=== PATIENT | female | born 1935 | race Caucasian/White ===

== ENCOUNTER 2019-04-12 19:03 | Emergency (ER) | payer MEDICARE, OTHER ==
[~2019-04-12] VITALS: Ht 162.6 cm; Wt 62.6 kg
[2019-04-12] MEDS ORDERED: ENBRACE HR SOF1 EACH PO (19:09)
[2019-04-12] MEDS ORDERED: LIPITOR 20 MG T20 M1 PO (19:09)
[2019-04-12] MEDS ORDERED: CALCIUM500 MG PO (19:09)
[2019-04-12] MEDS ORDERED: ARICEPT10 M1 PO (19:10)
[2019-04-12] MEDS ORDERED: FISH OIL 1,0001 EAC9 PO (19:10)
[2019-04-12] MEDS ORDERED: [UNRECOGNIZED DRUG - OTHER] OPHTHALMIC (19:11)
[2019-04-12] MEDS ORDERED: VITAMIN D-32000 UNIT PO (19:12)
[2019-04-12] MEDS ORDERED: TRAZODONE 150150 M1 PO (19:12)
[2019-04-12] MEDS ORDERED: ELIQUIS5 MG PO (19:12)
[2019-04-12 19:32] LABS: ABSOLUTE BASOPHILS 0.1 thou/uL (0.0-0.2); ABSOLUTE EOSINOPHILS 0.1 thou/uL (0.0-0.7); ABSOLUTE LYMPHOCYTES 2.9 thou/uL (0.8-5.3); ABSOLUTE MONOCYTES 0.6 thou/uL (0.0-1.2); ABSOLUTE NEUTROPHILS 3.4 thou/uL (1.6-8.1); BASOPHILS 1.3 %; EOSINOPHILS 1.2 %; HEMOGLOBIN 13.7 gm/dL (12.0-15.0); LYMPHOCYTES 40.6 %; MCH 30.3 pg (26.0-34.0); MCHC 34.2 g/dL (28.0-37.0); MCV 88.6 fL (80.0-100.0); MONOCYTES 8.4 %; MPV 6.6 fl. (7.2-11.1); NUCLEATED RBCS 0 /100WBC; PLATELET COUNT* 250 thou/uL (150-400); POLYS 48.5 %; RBC 4.51 mil/uL (4.20-5.00); RDW-CV 14.3 % (10.5-14.5); WBC 7.1 thou/uL (4.0-11.0)
[2019-04-12 19:39] LABS: CALCIUM 9.7 mg/dL (8.5-10.1); CREATININE 0.9 mg/dL (0.6-1.3); POTASSIUM 3.8 mmol/L (3.5-5.1)
[2019-04-12 19:44] LABS: ALBUMIN 3.8 g/dL (3.4-5.0); TOTAL BILIRUBIN 0.7 mg/dL (<0.1-1.0)
[2019-04-12 20:54] LABS: URINE BLOOD NEGATIVE (Negative); URINE CLARITY CLEAR; URINE COLOR YELLOW; URINE GLUCOSE-RANDOM NEGATIVE (Negative); URINE KETONES NEGATIVE (Negative); URINE LEUKOCYTES-REFLEX NEGATIVE (Negative); URINE NITRITE-REFLEX NEGATIVE (Negative); URINE PROTEIN NEGATIVE (Negative); URINE SPECIFIC GRAVITY >= 1.030 (1.005-1.030); URINE UROBILINOGEN 0.2 E.U./dl (0.2-1.0)
[2019-04-12 20:56] LABS: URINE BILIRUBIN 1+ (Negative)
[2019-04-12 21:00] LABS: ICTOTEST (BILI CONFIRMATORY) Negative (Negative)
[2019-04-12] MEDS ORDERED: TRAMADOL 50 MG50 MG PO (21:07)
[2019-04-12 21:35] VITALS: BP 145/85
== END 2019-04-12 21:36 | disposition home or self-care (01) ==
LOC: M.ERS 19:03
PROVIDERS: Nurse Practitioner Family
DX: M54.5 Low back pain (principal); I10 Essential (primary) hypertension; I48.91 Unspecified atrial fibrillation; J44.9 Chronic obstructive pulmonary disease, unspecified; F03.90 Unspecified dementia, unspecified severity, without behavioral disturbance, psychotic disturbance, mood disturbance, and anxiety; Z88.8 Allergy status to other drugs, medicaments and biological substances; Z90.710 Acquired absence of both cervix and uterus; Z90.49 Acquired absence of other specified parts of digestive tract